=== PATIENT | male | born 1945 | race Caucasian/White ===

== ENCOUNTER 2017-11-01 08:02 | Emergency (ER) | payer MEDICARE, BC ==
[~2017-11-01] VITALS: Ht 170.2 cm; Wt 79.5 kg
[~2017-11-01 08:02] MED LIST: EPIN0.3P3 IM
[2017-11-01] MEDS ORDERED: rabies immune globulin/PF 150 unit/ml inj IMVAC STA (08:16)
[2017-11-01] MEDS ORDERED: AMOX-580 PO (08:19)
[2017-11-01] MEDS ORDERED: rabies vaccine (PCEC)/PF 2.5 unit kit IMVAC ONE (08:20)
[2017-11-01] MEDS ORDERED: bacitracin 15gm ointment TP ONE (08:20)
[2017-11-01] MEDS ORDERED: amox tr/potassium clavulanate 875/125mg TAB PO ONE (08:20)
[2017-11-01] MEDS ORDERED: TETanus/Pertussis (Acell)/Diphther VAC/PF (Tdap-Adult) 0.5ml syringe IM ONE (08:20)
[2017-11-01] MEDS ORDERED: acetaminophen 325mg tablet PO ONE (08:20)
[2017-11-01] MEDS ORDERED: LIDOcaine 1% 30ml preserv. free vial IJ ONE (08:30)
[2017-11-01 10:11] VITALS: BP 127/83
[2017-11-01] MEDS ORDERED: rabies immune globulin/PF 150 unit/ml inj IMVAC ONE (10:40)
== END 2017-11-01 11:10 | disposition home or self-care (01) ==
LOC: ER 08:03
DX: S61.412A Laceration without foreign body of left hand, initial encounter (principal); S61.452A Open bite of left hand, initial encounter; S61.432A Puncture wound without foreign body of left hand, initial encounter; E78.00 Pure hypercholesterolemia, unspecified; I10 Essential (primary) hypertension; Z59.0 Homelessness; W54.0XXA Bitten by dog, initial encounter; Y93.89 Activity, other specified; Y92.89 Other specified places as the place of occurrence of the external cause; Y99.9 Unspecified external cause status
CPT/HCPCS: 12044; 73130; 90375; 90471; 90472; 90675; 90715; 96372; 99284; A6255; A6449; J3490